=== PATIENT | female | born 1990 | race Caucasian/White ===

== ENCOUNTER → 2019-10-08 | Outpatient (CLI) | payer BC ==
--- NOTE | 2019-10-08 08:45 | US ---
EXAMINATION TYPE: US thyroid st tissue head/neck DATE OF EXAM: 10/08/2019 COMPARISON: NONE CLINICAL HISTORY: E04.9 Enlarged Thyroid. enlarged thyroid GLAND SIZE: Right Lobe: 5.7 x 1.5 x 1.8 cm Overall Parenchyma: homogenous Left Lobe: 6.2 x 1.3 x 1.8 cm Overall Parenchyma: homogeneous Isthmus Thickness: .3 cm NODULES RIGHT: # of nodules measured on right: 0 LEFT: # of nodules measured on left: 0 ISTHMUS: # of nodules measured in the isthmus: 0 Bilateral neck scanned, no evidence of lymphadenopathy. IMPRESSION: Enlarged homogeneous thyroid gland with no nodule.
== END | disposition home or self-care (01) ==
LOC: RADUSWWP 07:45
PROVIDERS: ATTEND Obstetrics & Gynecology
DX: E04.9 Nontoxic goiter, unspecified (principal)
CPT/HCPCS: 76536

== ENCOUNTER → 2021-01-27 | Outpatient (CLI) | payer BC ==
[2021-01-28 03:22] LABS: Hemoglobin A1C 5.2 % (4.0-6.0)
[2021-01-28 15:49] LABS: T4, Free (Free Thyroxine) 1.1 ng/dL (0.80-1.80)
[2021-01-28 15:52] LABS: Prolactin 9.6 ng/mL (2.8-29.2)
[2021-01-28 15:59] LABS: Thyroid Peroxidase Antibodies <28.0 U/mL (0.0-60.0)
== END | disposition home or self-care (01) ==
LOC: LABWHC1 15:46
PROVIDERS: ATTEND Internal Medicine Endocrinology, Diabetes & Metabolism
DX: E66.01 Morbid (severe) obesity due to excess calories (principal); R53.83 Other fatigue; Z83.3 Family history of diabetes mellitus
CPT/HCPCS: 36415; 82306; 82533; 82607; 83036; 84146; 84439; 84443; 84480; 86376

== ENCOUNTER → 2021-02-03 | Outpatient (CLI) | payer BC ==
[2021-02-04 03:48] LABS: ACTH 14.3 pg/mL (0.00-45.99)
== END | disposition home or self-care (01) ==
LOC: LABWHC1 08:05
PROVIDERS: ATTEND Internal Medicine Endocrinology, Diabetes & Metabolism
DX: E27.40 Unspecified adrenocortical insufficiency (principal); R53.83 Other fatigue
CPT/HCPCS: 36415; 82024; 82533; 84439; 84443; 84480

== ENCOUNTER → 2021-09-01 | Outpatient (CLI) | payer BC | LOC: CPPFTMAIN 13:27 | PROVIDERS: ATTEND Internal Medicine | DX: R05.9 Cough, unspecified (principal) | CPT/HCPCS: 94060; 94726; 94729 ==

== ENCOUNTER 2024-10-02 09:32 | Outpatient (CLI) | payer BC ==
[2024-10-02 10:17] LABS: Basophils % (A) 0 %; Eosinophils # (A) 0.1 k/uL (0-0.7); Eosinophils % (A) 1 %; HCT 38.4 % (34.0-46.0); HGB 12.9 gm/dL (11.4-16.0); Lymphocytes # (A) 1.7 k/uL (1.0-4.8); Lymphocytes % (A) 17 %; MCH 31.7 pg (25.0-35.0); MCHC 33.7 g/dL (31.0-37.0); MCV 94.2 fL (80.0-100.0); Mean Platelet Volume 9.3; Monocytes # (A) 0.4 k/uL (0-1.0); Monocytes % (A) 4 %; Neutrophils # (A) 7.7 k/uL (1.3-7.7); Neutrophils % (A) 77 %; Platelet Count 123 k/uL (150-450); RBC 4.08 m/uL (3.80-5.40); RDW 12.3 % (11.5-15.5); WBC 10.1 k/uL (3.8-10.6)
[2024-10-02 10:29] LABS: ALT 10 U/L (4-34); AST 15 U/L (14-36); African American GFR (CKD) >90 (>60 ml/min/1.73 sqM); Blood Urea Nitrogen 7 mg/dL (7-17); LDH 152 U/L (120-246); Non-African American GFR(CKD) >90 (>60 ml/min/1.73 sqM)
[2024-10-02 11:30] VITALS: BP 137/79; PULSE 103; RESP 18; TEMP 96.6
[2024-10-02 11:52] LABS: Creatinine,Urine Random 20.4 mg/dL; Protein/Creatinine Ratio,Urine 0.637
== END 2024-10-02 11:20 | disposition home or self-care (01) ==
LOC: FBPOP 09:32
PROVIDERS: ATTEND Obstetrics & Gynecology
DX: O13.9 Gestational [pregnancy-induced] hypertension without significant proteinuria, unspecified trimester (principal); Z91.018 Allergy to other foods; Z88.2 Allergy status to sulfonamides; Z91.011 Allergy to milk products; Z3A.36 36 weeks gestation of pregnancy
CPT/HCPCS: 36415; 59025; 82565; 82570; 83615; 84156; 84450; 84460; 84520; 84550; 85025

== ENCOUNTER 2024-10-21 13:06 | Outpatient (CLI) | payer BC ==
[2024-10-21 14:18] VITALS: BP 110/64; PULSE 99; RESP 16; TEMP 97.4
--- NOTE | 2024-11-23 23:41 | P.MSEPDOC ---
Presenting Problems - Arrival Data Date of Arrival on Unit: 10/21/24 Time of Arrival on Unit: 13:06 Mode of Transport: Ambulatory - Complaint OB-Reason for Admission/Chief Complaint: Decreased Movement Medical History - Information : 1 Para: 0 Term: 0 : 0 Abortions: Spontaneous or Elective: 0 Number of Living Children: 0 - Gestational Age Gestational Age by LAURI (wks/days): 39 Weeks and 4 Days Review of Systems - Review of Systems Constitutional: No problems Breast: No problems ENT: No problems Cardiovascular: No problems Respiratory: No problems Gastrointestinal: No problems Genitourinary: No problems Musculoskeletal: No problems Neurological: No problems Skin: No problems Vital Signs - Temperature Temperature: 97.4 F Temperature Source: Temporal Artery Scan - Pulse Pulse Oximetery Pulse Rate: 99 Pulse Assessment Method: Pulse Oximetry - Respirations Respiratory Rate: 16 Oxygen Delivery Method: Room Air O2 Sat by Pulse Oximetry: 97 - Blood Pressure Right Arm Blood Pressure: 110/64 Blood Pressure Mean: 79 Blood Pressure Source: Automatic Cuff Medical Screen Scoring - Assessment - Baby A Baseline FHR: 125 Heart Rate - NICHD Category: Category I (Normal) NST: Reactive Physician Notification - Physician Notified Physician Notified Date: 10/21/24 Physician Notified Time: 13:57 Physician: Brody Hampton New Order Received: Yes - Notification Comment Comment: Dr. Hampton called, report given on maternal c/o decreased movement today and feeling "leaky". FHTs are catergory 1 and reactive, no contractions noted, vitals WNL, and pt is feeling good movement. Amnisure is also negative. Orders to discharge pt home. Maternal Triage Index - Maternal Triage Index Presenting for scheduled procedure w/no complaint: No - Stat/Priority 1 Stat Priority 1: No - Urgent/Priority 2 Urgent Priority 2: Yes Provider Notified: Brody Hampton Provider Notified Time: 13:57 Criteria Met for Priority 2: 39 4/7wks, decreased movement Disposition - Disposition OB Disposition: Discharge to home Discharge Date: 10/21/24 Discharge Time: 14:04 I agree with the RN Medical Screening Exam: Yes Physician's MSE Comment: I have neither seen nor examined the patient. Case reviewed; plan agreed upon as documented in EMR&OBIX.: Yes Diagnosis: RELATED CONDITIONS, UNSPECIFIED, THIRD TRIMESTER
== END 2024-10-21 14:04 | disposition home or self-care (01) ==
LOC: FBPOP 13:06
PROVIDERS: ATTEND Obstetrics & Gynecology
DX: O26.93 Pregnancy related conditions, unspecified, third trimester (principal); Z3A.39 39 weeks gestation of pregnancy; Z91.018 Allergy to other foods; Z91.011 Allergy to milk products; Z88.2 Allergy status to sulfonamides
CPT/HCPCS: 59025; 84112; 99213

== ENCOUNTER 2024-10-28 11:44 | Outpatient (CLI) | payer BC ==
[2024-10-28 13:43] VITALS: BP 129/59; PULSE 95; RESP 17; TEMP 96.8
--- NOTE | 2024-10-28 14:03 | US ---
EXAMINATION TYPE: US OB BPP wo non-stress DATE OF EXAM: 10/28/2024 COMPARISON: NONE CLINICAL INDICATION: Female, 34 years old with history of post dates, decreased heart rate; 40w 4d . Patient reports decreased movement TECHNIQUE: Transabdominal (TA). Scoring by the mill tender second operator during real-time assessment. FINDINGS: BPP PARAMETERS: PRESENTATION: Vertex LIE: Oblique?? HEART RATE: 138 bpm RHYTHM: Normal MARCOS: 7.25 BPP SCORIN. Breathin (1 episode of breathing of 30 second duration in 30 minutes of scanning time) 2. Movement: 2 (at least 3 discrete body movements in 30 minutes) 3. Tone: 2 (1 episode of active flexion/extension of limb) 4. MARCOS: 2 (MARCOS index > 5cm) TRACTOR DRIVER TEAMSTER NOTES: IMPRESSION: TOTAL SCORE: 8 / 8 [facility], , 10/28/2024 2:01 PM
== END 2024-10-28 13:35 | disposition home or self-care (01) ==
LOC: FBPOP 11:44
PROVIDERS: ATTEND Obstetrics & Gynecology
DX: O36.8331 Maternal care for abnormalities of the fetal heart rate or rhythm, third trimester, fetus 1 (principal); Z3A.40 40 weeks gestation of pregnancy; Z91.018 Allergy to other foods; Z91.011 Allergy to milk products; Z88.2 Allergy status to sulfonamides
CPT/HCPCS: 59025; 76819; 99213